=== PATIENT | female | born 1995 | race African-American/Black ===

== ENCOUNTER 2018-11-20 20:57 | Emergency (ER) | payer BC, MEDICAID ==
[~2018-11-20] VITALS: Ht 160 cm; Wt 54.4 kg
--- NOTE | 2018-11-20 21:30 | NUR ---
pt stated she has asthma attacks and she run out her inhaler overall appearances fair no acute resp distress noted sating 99% on room air, comfort and safety maintained
[2018-11-20] MEDS ORDERED: ALBUTEROL SULFATE 2.5 MG/3 ML NEBU ONE (21:44)
[2018-11-20] MEDS ORDERED: ALBUTEROL SULFATE 2.5 MG/3 ML NEBU NEB ONE (21:45)
--- NOTE | 2018-11-20 21:45 | NUR ---
pt rec's neb txment by rt with effect
--- NOTE | 2018-11-20 21:50 | NUR ---
pt discharge to home overall appearances stable discharge instruction and prescription teaching given with effect denies pain/discomfort left with 2 friends
[2018-11-20 22:02] VITALS: BP 118/61
== END 2018-11-20 21:50 | disposition home or self-care (01) ==
LOC: ER 20:57
DX: J45.901 Unspecified asthma with (acute) exacerbation (principal); F17.200 Nicotine dependence, unspecified, uncomplicated
CPT/HCPCS: 94664; A4663